=== PATIENT | female | born 1985 | race Caucasian/White ===

== ENCOUNTER 2017-03-22 19:14 | Observation (INO) | payer MEDICAID ==
[2017-03-22 18:33] LABS: BASO % 0.3 % (0-2); EOS % 1.3 % (0-7); EOSINOPHIL ABSOLUTE COUNT 0.1 tho/cmm (0.0-0.7); IMMATURE GRANULOCYTES ABSOLUTE 0.03 tho/cmm (0-0.03); IMMATURE GRANULOCYTES PERCENT 0.3 % (0-0.3); LYMPH % 14.5 % (20-45); LYMPH ABSOLUTE COUNT 1.5 tho/cmm (0.8-4.5); MCH (MEAN CORPUSCULAR HGB) 22.9 pg (28.0-32.0); MCHC MEAN CORPUSCULAR HGB CONC 31.6 % (32.0-36.0); MCV (MEAN CELL VOLUME) 72.5 fl (82.0-96.0); MEAN PLATELET VOLUME 8.1 cmc (9.4-12.4); MONO % 5.1 % (0-12); MONOCYTE ABSOLUTE COUNT 0.5 tho/cmm (0.0-1.2); NEUTROPHIL ABSOLUTE COUNT 8.2 tho/cmm (1.6-8.0); NEUTROPHIL-AUTOMATED 8.2 tho/cmm (1.6-8.0); NEUTROPHILS % 78.5 % (40-80); PLATELET COUNT 302 tho/cmm (150-450); RED BLOOD COUNT 5.24 mil/cmm (4.00-5.20); RED CELL DISTRIBUTION WIDTH 14.5 % (12.4-16.4); WHITE BLOOD COUNT 10.5 tho/cmm (4.0-10.0)
[2017-03-22 18:50] LABS: ANION GAP 12 mmol/L (0-20); BLOOD UREA NITROGEN 8 mg/dl (6-24); C-REACTIVE PROTEIN 6.8 mg/dl (0-0.9); CALCIUM 8.7 mg/dl (8.5-10.5); CARBON DIOXIDE-VENOUS 24 mmol/L (22-32); CHLORIDE 103 mmol/l (96-110); CREATININE 0.78 mg/dl (0.50-1.10); GLUCOSE 103 mg/dL (70-110); POTASSIUM 4.4 mmol/L (3.7-5.1); SODIUM 135 mmol/L (135-145); eGFR VALUE FOR BLACK >90 mL/Min
[2017-03-22 18:53] LABS: ESR-ERYTHROCYTE SED RATE 16 mm/hr (0-20)
[~2017-03-22 19:14] MED LIST: MELOXICAM15 M1 PO; MOBIC7.5 M2 PO
[2017-03-22 20:19] LABS: PROCALCITONIN <0.05 ng/ml (0.05-0.09)
[2017-03-22 21:36] LABS: MAGNESIUM 1.8 mg/dl (1.8-2.6); PHOSPHOROUS 3.1 mg/dl (2.5-4.9)
[2017-03-22 21:40] LABS: TSH-THYROID STIMULATING HORM. 1.03 uIU/ml (0.40-3.80)
[2017-03-22 22:37] LABS: URINE BILIRUBIN NEGATIVE (NEG); URINE BLOOD MODERATE (NEG); URINE GLUCOSE (UA) NEGATIVE (NEG); URINE KETONE NEGATIVE (NEG); URINE LEUKOCYTE ESTERASE POSITIVE (NEG); URINE NITRITE NEGATIVE (NEG); URINE PROTEIN MODERATE (NEG)
[2017-03-22 22:39] LABS: URINE APPEARANCE HAZY; URINE COLOR YELLOW
[2017-03-22 22:44] LABS: URINE AMORPHOUS 1+; URINE BACTERIA 2+; URINE RBC RARE /[HPF] (0-5)
[2017-03-23 07:30] LABS: BASO % 0.4 % (0-2); EOS % 3.7 % (0-7); EOSINOPHIL ABSOLUTE COUNT 0.3 tho/cmm (0.0-0.7); HCT-HEMATOCRIT 34.6 % (34.0-49.0); HGB-HEMOGLOBIN 10.9 gm/dl (12.0-15.5); IMMATURE GRANULOCYTES ABSOLUTE 0.03 tho/cmm (0-0.03); IMMATURE GRANULOCYTES PERCENT 0.4 % (0-0.3); LYMPH % 31.4 % (20-45); LYMPH ABSOLUTE COUNT 2.3 tho/cmm (0.8-4.5); MCH (MEAN CORPUSCULAR HGB) 22.9 pg (28.0-32.0); MCHC MEAN CORPUSCULAR HGB CONC 31.5 % (32.0-36.0); MCV (MEAN CELL VOLUME) 72.7 fl (82.0-96.0); MEAN PLATELET VOLUME 8.5 cmc (9.4-12.4); MONO % 6.5 % (0-12); MONOCYTE ABSOLUTE COUNT 0.5 tho/cmm (0.0-1.2); NEUTROPHIL ABSOLUTE COUNT 4.2 tho/cmm (1.6-8.0); NEUTROPHIL-AUTOMATED 4.2 tho/cmm (1.6-8.0); NEUTROPHILS % 57.6 % (40-80); PLATELET COUNT 280 tho/cmm (150-450); RED BLOOD COUNT 4.76 mil/cmm (4.00-5.20); RED CELL DISTRIBUTION WIDTH 14.6 % (12.4-16.4); WHITE BLOOD COUNT 7.3 tho/cmm (4.0-10.0)
[2017-03-23 07:38] LABS: ANION GAP 13 mmol/L (0-20); BLOOD UREA NITROGEN 7 mg/dl (6-24); CALCIUM 8.1 mg/dl (8.5-10.5); CARBON DIOXIDE-VENOUS 24 mmol/L (22-32); CHLORIDE 110 mmol/l (96-110); CHOLESTEROL 170 mg/dl (120-200); CREATININE 0.64 mg/dl (0.50-1.10); GLUCOSE 90 mg/dL (70-110); HDL CHOLESTEROL 23 mg/dl (40-60); LDL CHOLESTEROL 92 mg/dl (0-99); POTASSIUM 3.8 mmol/L (3.7-5.1); SODIUM 143 mmol/L (135-145); VLDL 56 mg/dl (0-30); eGFR VALUE FOR BLACK >90 mL/Min
[2017-03-23 07:54] LABS: TRIGLYCERIDES 278 mg/dl (<149)
[2017-03-23 08:03] LABS: INR 1.1 INR (0.9-1.1); PROTHROMBIN TIME 13.2 SECONDS (9.0-13.6)
[2017-03-23 14:55] LABS: CSF GLUCOSE 56 mg/dl (40-75)
[2017-03-23 15:54] LABS: CSF TUBE NUMBER CSF TUBE 1
[2017-03-23 15:55] LABS: CSF APPEARANCE CLEAR (CLEAR); CSF COLOR COLORLESS (COLORLESS); CSF RBC CT 4 cmm (0); CSF WBC CT 1 cmm (0-10)
[2017-03-24 22:34] LABS: URINE TOTAL PROTEIN-RANDOM 12.1 mg/dl (<11.8)
[2017-03-25 09:50] LABS: URINE PRT/CR RATIO 0.1 Ratio (0.0-0.20)
== END 2017-03-25 15:09 ==
LOC: EDMED 19:14 → EMR2 20:53 → 5EB 23:07
PROVIDERS: Emergency Medicine; Internal Medicine; Psychiatry & Neurology Neurology; Radiology Diagnostic Radiology; Registered Nurse; ADMIT Internal Medicine
DX: R29.898 Other symptoms and signs involving the musculoskeletal system (principal); M25.50 Pain in unspecified joint; R60.0 Localized edema; R80.9 Proteinuria, unspecified; R82.71 Bacteriuria; K59.00 Constipation, unspecified; F32.9 Major depressive disorder, single episode, unspecified; F31.9 Bipolar disorder, unspecified; I95.9 Hypotension, unspecified; E66.9 Obesity, unspecified; R20.0 Anesthesia of skin; Z98.818 Other dental procedure status; Z79.899 Other long term (current) drug therapy
CPT/HCPCS: A9577; C8929; G0378; G8978-GP-CL; G8979-GP-CK; G8987-GO-CK; G8988-GO-CK; G8989-GO-CK; J2405; J7030